=== PATIENT | male | born 1970 | race Caucasian/White ===

== ENCOUNTER 2024-04-23 23:01 | Inpatient (IN) | payer MEDICAID, OTHER ==
[~2024-04-23] VITALS: Ht 177.8 cm; Wt 102.5 kg
[2024-04-23] MEDS: FOLIC ACID 1 MG, THIAMINE HCL 100 MG, MVI, ADULT NO.1 10 ML in DEXTROSE 5% WATER 1,000 ML IV ONE (23:15)
[2024-04-24 00:03] LABS: CARBON DIOXIDE 23 mEq/L (21-32); CHLORIDE 103 mEq/L (98-107); POTASSIUM 3.9 mEq/L (3.5-5.1); SODIUM 140 mEq/L (136-145)
[2024-04-24 00:06] LABS: BASOPHILS % 0.3 % (0.0-2.0); EOSINOPHILS % 0.5 % (0.0-5.0); HEMOGLOBIN. 16.9 g/dL (14.0-18.0); LYMPHOCYTES % 27.3 % (20.0-50.0); MEAN CORPUSCULAR HEMOGLOBIN 31.2 pg (28.0-32.0); MEAN CORPUSCULAR HGB CONC 33.8 g/dL (31.0-37.0); MEAN CORPUSCULAR VOLUME 92.3 fL (80.0-94.0); MEAN PLATELET VOLUME 6.8 fl (7.4-10.4); MONOCYTES % 7.5 % (2.0-8.0); NEUTROPHILS % 64.4 % (40.0-76.0); PLATELET 282 x1000/uL (130-400); RED BLOOD CELL COUNT 5.41 mill/uL (4.7-6.1); RED CELL DISTRIBUTION WIDTH 13.2 % (11.6-14.6); WHITE BLOOD COUNT 11.3 x1000/uL (4.5-11.0)
[2024-04-24 00:08] LABS: CREATININE 1.6 mg/dL (0.6-1.3)
[2024-04-24 00:09] LABS: ETHANOL BLOOD 300 mg/dL (<10); GLUCOSE 102 mg/dL (70-105); UREA NITROGEN BLOOD 11 mg/dL (9-23)
[2024-04-24 00:10] LABS: ALANINE AMINOTRANSFERASE 53 IU/L (10-49); ASPARTATE AMINOTRANSFERASE 74 IU/L (<34)
[2024-04-24 00:11] LABS: ALBUMIN 4.5 g/dL (3.2-4.8); BILIRUBIN DIRECT 1.4 mg/dL (<=3.0); BILIRUBIN TOTAL 3.9 mg/dL (0.1-1.0); PROTEIN TOTAL 7.9 g/dL (6.0-8.3)
[2024-04-24 02:12] LABS: CLARITY URINE CLEAR (CLEAR); COLOR URINE YELLOW (YELLOW); GLUCOSE URINE TRACE (NEGATIVE); KETONES URINE NEGATIVE (NEGATIVE); LEUKOCYTE ESTERASE URINE NEGATIVE (NEGATIVE); NITRITE URINE NEGATIVE (NEGATIVE); OCCULT BLOOD URINE NEGATIVE (NEGATIVE); PROTEIN URINE 1+ (NEGATIVE); SPECIFIC GRAVITY URINE 1.008 (1.005-1.030)
[2024-04-24 03:31] LABS: BACTERIA URINE NONE SEEN; RBC URINE 0-2 /hpf (0-2); SQUAMOUS EPITHELIAL CELL URINE NONE SEEN /lpf (RARE/1+); WBC URINE 0-2 /hpf (0-2)
[2024-04-24 08:00] VITALS: BP 156/95; PULSE 101; RESP 18; TEMP 36.72516; O2SAT 97
[2024-04-24 08:24] VITALS: BP 156/95; PULSE 101; RESP 18; TEMP 36.7516
[2024-04-24] MEDS: LORAZEPAM 2MG/ML INJ IV NR (08:48)
[2024-04-24] MEDS ORDERED: LOSA50TA41 PO (09:04)
[2024-04-24] MEDS ORDERED: PROT20 PO (09:05)
[2024-04-24] MEDS: PANTOPRAZOLE SODIUM 40 MG/VIAL IV SCH (11:00)
[2024-04-24 11:44] LABS: HEPATITIS B SURFACE ANTIGEN NEGATIVE (Negative)
[2024-04-24 12:00] VITALS: BP 149/100; PULSE 101; RESP 18; TEMP 36.50292; O2SAT 96
[2024-04-24 12:05] LABS: HEPATITIS C AB NON REACTIVE (Neg) (Negative)
[2024-04-24] MEDS: CLONIDINE 0.1MG TABLET PO PRN (13:16)
[2024-04-24] MEDS: LORAZEPAM 2MG/ML INJ IV PRN (13:20)
[2024-04-24 16:00] VITALS: BP 144/91; PULSE 104; RESP 18; TEMP 36.50292; O2SAT 96
[2024-04-24] MEDS: FOLIC ACID 1 MG, THIAMINE HCL 100 MG, MVI, ADULT NO.1 10 ML in DEXTROSE 5% WATER 1,000 ML IV ONE (17:36)
[2024-04-24 20:00] VITALS: BP 140/92; PULSE 107; RESP 20; TEMP 36.83628; O2SAT 93
[2024-04-25] VITALS: BP 155/98; PULSE 104; RESP 20; TEMP 36.55848; O2SAT 95
[2024-04-25 08:00] VITALS: BP 160/91; PULSE 101; RESP 20; TEMP 36.114; O2SAT 94
[2024-04-25 12:00] VITALS: BP 132/82; PULSE 96; RESP 20; TEMP 36.114; O2SAT 96
[2024-04-25 16:00] VITALS: BP 148/94; PULSE 91; RESP 20; TEMP 36.114; TEMP 36.11400; O2SAT 98
[2024-04-25 18:04] VITALS: BP 148/94; PULSE 91; TEMP 97; O2SAT 98
== END 2024-04-25 19:00 | disposition home or self-care (01) ==
LOC: ER 23:01 → EDBEDREQTM 04-24 04:43 → EDBEDREQ 04-24 04:43 → EDBEDREQSVC 04-24 04:43 → 8WST 04-24 08:03
PROVIDERS: ADMIT Internal Medicine; ATTEND Internal Medicine
DX: K76.0 Fatty (change of) liver, not elsewhere classified (principal); N17.9 Acute kidney failure, unspecified; E78.5 Hyperlipidemia, unspecified; F10.229 Alcohol dependence with intoxication, unspecified; F10.239 Alcohol dependence with withdrawal, unspecified; K21.9 Gastro-esophageal reflux disease without esophagitis; I10 Essential (primary) hypertension; Y90.8 Blood alcohol level of 240 mg/100 ml or more; Z96.651 Presence of right artificial knee joint
CPT/HCPCS: 36415; 76705; 80048; 80076; 80320; 81003; 85025; 86705; 87340; 99285; J2060; J2470; J3411; J3490; J7070; G0480